=== PATIENT | male | born 1970 | race Caucasian/White ===

== ENCOUNTER 2020-02-26 09:25 | Inpatient (IN) | payer SELFPAY ==
--- NOTE | 2020-02-26 09:46 | BHS.RME ---
Substance Use & Tx History - Substance Use History Alcohol Substance amount: 1/5 vodka Frequency of use: Daily Substance route: Oral Date of Last Use: 02/25/20 (First use age 12. NO seizures or blackouts. Admits to eyeopener) Nicotine Substance amount: 1/2 cigar Frequency of use: Daily Substance route: Smoking Date of Last Use: 02/25/20 (First smoke cigarettes age 12 y) - Last Treatment Date of last treatment: Feb 25, [facility]: alcohol abuse/intoxication Where was last treatment: ER Physical/Psych/Mental Status - Behavior General Behavior: Increased activity (restlessness, agitation) Eye Contact: Normal - Cooperativeness Cooperativeness: Cooperative - Thinking Thought Processes: Tight Thought content: Future oriented - Physical Health Problems Is patient presently having any pain?: No Does patient presently have any injuries (include location): No Does patient currently have a fever: No CIWA Nausea/Vomitin-No Nausea/No Vomiting Muscle Tremors: 4-Moderate,w/Arms Extend Anxiety: 3 Agitation: 3 Paroxysmal Sweats: No Perspiration Orientation: 2-Disoriented Date<2 days Tacttile Disturbances: 0-None Auditory Disturbances: 0-None Visual Disturbances: 0-None Headache: 0-None Present CIWA-Ar Total Score: 12
[2020-02-26 10:30] VITALS: BMI 24.4
--- NOTE | 2020-02-26 10:50 | HP ---
CIWA Score Nausea/Vomitin-No Nausea/No Vomiting Muscle Tremors: 4-Moderate,w/Arms Extend Anxiety: 3 Agitation: 3 Paroxysmal Sweats: No Perspiration Orientation: 2-Disoriented Date<2 days Tacttile Disturbances: 0-None Auditory Disturbances: 0-None Visual Disturbances: 0-None Headache: 0-None Present CIWA-Ar Total Score: 12 - Admission Criteria OASAS Guidelines: Admission for Medically Managed Detox: Requires at least one of the followin. CIWA greater than 12 2. Seizures within the past 24 hours 3. Delirium tremens within the past 24 hours 4. Hallucinations within the past 24 hours 5. Acute intervention needed for co occurring medical disorder 6. Acute intervention needed for co occurring psychiatric disorder 7. Severe withdrawal that cannot be handled at a lower level of care (continued vomiting, continued diarrhea, abnormal vital signs) requiring intravenous medication and/or fluids 8. Admitting History and Physical - Admission Chief Complaint: Mr. Portillo is a 49 yo man who presents to [facility] requesting detox for alcohol use. History of Present Illness: Mr. Portillo is a 49 yo man who presents to [facility] requesting detox for alcohol use. He was last here in 2010. He had a maximum of 2.5 years of sobriety since that time. More recently, he was abstinent for 4 weeks, but, then relapsed 4 days ago when he lost his job and his kicked him out of the home. He presented to [facility] in the past few days. Records from [facility] dated today: alcohol abuse, alcohol intoxication. Further de tails not provided. Pt states he took a cab to get here today PMH: OLIVIA PSH/Psych/Legal: none SoC: recently homeless Substance Use History Alcohol Substance amount: 1/5 vodka Frequency of use: Daily Substance route: Oral Date of Last Use: 02/25/20 (First use age 12. NO seizures or blackouts. Admits to eyeopener) Nicotine Substance amount: 1/2 cigar Frequency of use: Daily Substance route: Smoking Date of Last Use: 02/25/20 (First smoke cigarettes age 12 y) - Last Treatment Date of last treatment: Feb 25 [facility]: alcohol abuse/intoxication Where was last treatment: ER History Source: Patient Limitations to Obtaining History: No Limitations - Smoking History Smoking history: Former smoker Have you smoked in the past 12 months: Yes Aproximately how many cigarettes per day: 0 Admission ROS BHS - HPI Allergies/Adverse Reactions: Allergies Allergy/AdvReac Type Severity Reaction Status Date / Time No Known Allergies Allergy Verified 02/26/20 10:08 Exam Limitations: No Limitations - Ebola screening Have you traveled outside of the country in the last 21 days: No Have you been sick,other than usual withdrawal symptoms: No Do you have a fever: No - Review of Systems Constitutional: No Symptoms Reported EENT: reports: Blurred Vision (glasses for reading) Respiratory: reports: No Symptoms reported Cardiac: reports: No Symptoms Reported GI: reports: Nausea : reports: No Symptoms Reported Musculoskeletal: reports: No Symptoms Reported Integumentary: reports: No Symptoms Reported Neuro: reports: No Symptoms reported Endocrine: reports: No Symptoms Reported Hematology: reports: No Symptoms Reported Psychiatric: reports: Anxious Patient History - Patient Medical History Hx Asthma: No Hx Chronic Obstructive Pulmonary Disease (COPD): No Hx Cardiac Disorders: No Hx Hypertension: Yes Hx Seizures: No Hx Diabetes: No Hx Gastrointestinal Disorders: Yes (Acid reflux) Hx Genitourinary Disorders: No Hx Sexually Transmitted Disorders: No Hx Renal Disease (ESRD): No Hx Depression: Yes Hx Suicide Attempt: No Hx Schizophrenia: No - Patient Surgical History Past Surgical History: No Hx Neurologic Surgery: No Hx Cataract Extraction: No Hx Cardiac Surgery: No Hx Lung Surgery: No Hx Breast Surgery: No Hx Breast Biopsy: No Hx Abdominal Surgery: No Hx Appendectomy: No Hx Cholecystectomy: No Hx Genitourinary Surgery: No Hx Section: No Hx Orthopedic Surgery: No Anesthesia Reaction: No - Reproductive History Patient : (n/a) - Smoking Cessation Smoking history: Former smoker Have you smoked in the past 12 months: Yes Aproximately how many cigarettes per day: 0 Cigars Per Day: 1 Hx Chewing Tobacco Use: No Initiated information on smoking cessation: Yes 'Breaking Loose' booklet given: 02/26/20 - Substances abused Alcohol Substance route: Oral Frequency: Daily Amount used: 27.6 oz Age of first use: 12 Date of last use: 02/25/20 Admission Physical Exam BHS - Vital Signs Vital Signs: Vital Signs - 24 hr 02/26/20 10:27 Temperature 97.8 F Pulse Rate 100 H Respiratory 18 Rate Blood Pressure 165/99 - Physical General Appearance: Yes: Nourished, Mild Distress, Tremorous, Anxious HEENTM: Yes: EOMI, Hearing grossly Normal, Normocephalic, Normal Voice Respiratory: Yes: Lungs Clear, No Respiratory Distress, No Accessory Muscle Use Neck: Yes: Within Normal Limits, Supple Breast: Yes: Breast Exam Deferred Cardiology: Yes: Regular Rhythm, Regular Rate Abdominal: Yes: Normal Bowel Sounds, Non Tender, Flat, Soft Genitourinary: Yes: Other (deferred) Back: Yes: Normal Inspection Musculoskeletal: Yes: Gait Steady Extremities: Yes: Normal Inspection, Non-Tender Neurological: Yes: Alert, Normal Response Integumentary: Yes: Normal Color, Dry, Warm - Diagnostic (1) Alcohol dependence with withdrawal, uncomplicated Current Visit: Yes Status: Acute Comment: 1. Admit to detox 2. Alcohol withdrawal protocol with Librium 3. routine labs (2) Nicotine dependence Current Visit: Yes Status: Acute Qualifiers: Nicotine product type: other Comment: 1. Nicotine replacement therapy (3) GERD (gastroesophageal reflux disease) Current Visit: Yes Status: Acute Comment: 1. continue Prilosec (4) Homeless Current Visit: Yes Status: Acute Comment: 1. has kicked pt out of home in the past few days Cleared for Admission S - Detox or Rehab [facility] Level of Care: Medically Managed Detox Regimen/Protocol: Librium Breathalyzer - Breathalyzer Breathalyzer: 0.139 Urine Drug Screen - Test Device Lot number: [id number] Expiration date: 09/18/21 - Control Is test valid?: Yes - Results Drug screen NEGATIVE: Yes Inpatient Rehab Admission - Rehab Decision to Admit Inpatient rehab admission?: No
[2020-02-26] MEDS ORDERED: ACETAMINOPHEN 325 MG TABLET (FP) PO PRN ×2 (10:52)
[2020-02-26] MEDS ORDERED: MENTHOL/PHENOL 1 EACH UD MM PRN (10:52)
[2020-02-26] MEDS ORDERED: ONDANSETRON *ODT* 4 MG TABLET SL PRN (10:52)
[2020-02-26] MEDS ORDERED: NICOTINE POLACRILEX 2 MG GUM BUC PRN (10:52)
[2020-02-26] MEDS ORDERED: MAGNESIUM CITRATE 300 ML BOTTLE PO PRN (10:52)
[2020-02-26] MEDS ORDERED: METHOCARBAMOL 500 MG TABLET PO PRN (10:52)
[2020-02-26] MEDS ORDERED: MAG HYDROX/AL HYDROX/SIMETH 30 ML UNIT-DOSE CUP PO PRN (10:52)
[2020-02-26] MEDS ORDERED: MAGNESIUM HYDROX 2400MG/30ML ORAL SUSPENSION 30 ML CUP PO PRN (10:52)
[2020-02-26] MEDS ORDERED: BISMUTH SUBSALICYLATE 262 MG/15 ML BTL PO PRN (10:52)
[2020-02-26] MEDS ORDERED: chlordiazePOXIDE HCL 25 MG CAPSULE PO PRN (10:52)
[2020-02-26] MEDS ORDERED: IBUPROFEN 400 MG TABLET (FP) PO PRN (10:52)
[2020-02-26] MEDS ORDERED: PATIENT'S OWN MEDICATION (NON-FORMULARY) (Omeprazole Magnesium [Prilosec Otc] 20 MG) PO SCH (11:00)
[2020-02-26] MEDS: chlordiazePOXIDE HCL 25 MG CAPSULE PO SCH ×3 (12:04→22:48)
--- NOTE | 2020-02-26 14:08 | EKG ---
Test Reason : Blood Pressure : / mmHG Vent. Rate : 086 BPM Atrial Rate : 086 BPM P-R Int : 146 ms QRS Dur : 098 ms QT Int : 374 ms P-R-T Axes : 065 013 051 degrees QTc Int : 447 ms POOR DATA QUALITY, INTERPRETATION MAY BE ADVERSELY AFFECTED NORMAL SINUS RHYTHM NORMAL ECG NO PREVIOUS ECGS AVAILABLE Confirmed by Ted Pedro MD ([id number]) on 02/26/2020 2:07:41 PM Referred By: Confirmed By:Ted Pedro MD
--- NOTE | 2020-02-26 14:19 | PN ---
BHS Progress Note Note: OMEPROZOLE NOT ABLE TO BE IDENTIFIED BY THE PHARMACIST DISCONTINUE OMEPRAZOLE BEGIN PEPCID 20 MG PO BID
[2020-02-26] MEDS: hydrOXYzine PAMOATE 25 MG CAPSULE (FP) PO SCH ×3 (14:23→22:48)
[2020-02-26 15:04] LABS: HEMATOCRIT 45.4 % (35.4-49); HEMOGLOBIN 15.7 GM/dL (11.7-16.9); MCH 33.9 pg (25.7-33.7); MCHC 34.5 g/dl (32.0-35.9); MEAN CELL VOLUME 98.2 fl (80-96); MEAN PLT VOLUME 9.5 fl (7.5-11.1); PLATELET COUNT 135 K/MM3 (134-434); RBC 4.62 M/mm3 (4.00-5.60); RDW 13.1 % (11.9-15.9); WHITE BLOOD COUNT 4.7 K/mm3 (4.0-10.0)
[2020-02-26 15:05] LABS: ALBUMIN 4.4 g/dl (3.4-5.0); BILIRUBIN,TOTAL 1.2 mg/dL (0.2-1); BLOOD UREA NITROGEN 10.5 mg/dL (7-18); CALCIUM 9.3 mg/dL (8.5-10.1); CREATININE 0.9 mg/dL (0.55-1.3); POTASSIUM 3.6 mmol/L (3.5-5.1); TOT PROT 9.6 g/dl (6.4-8.2)
[2020-02-26] MEDS: MELATONIN 5 MG TABLETS PO SCH (22:48)
[2020-02-26] MEDS: THIAMINE HCL 100 MG TABLET (FP) PO SCH (22:48)
[2020-02-27] MEDS: chlordiazePOXIDE HCL 25 MG CAPSULE PO SCH ×2 (06:26→10:21)
[2020-02-27] MEDS: hydrOXYzine PAMOATE 25 MG CAPSULE (FP) PO SCH ×5 (06:27→22:44)
[2020-02-27] MEDS ORDERED: FAMOTIDINE 20 MG TABLET PO SCH (10:00)
[2020-02-27] MEDS: FAMOTIDINE 20 MG TABLET PO SCH ×2 (10:21→22:44)
[2020-02-27] MEDS: PRENATAL VITAMINS W/ FOLIC ACID TABLET (FP) PO SCH (10:21)
[2020-02-27] MEDS: NICOTINE 7 MG/24 HOURS TOPICAL PATCH TD SCH (10:21)
[2020-02-27] MEDS ORDERED: LORazepam 1 MG TABLET PO PRN (11:27)
--- NOTE | 2020-02-27 11:29 | PN ---
S CIWA - CIWA Score Nausea/Vomitin-Mild Nausea/No Vomiting Muscle Tremors: 4-Moderate,w/Arms Extend Anxiety: 3 Agitation: 2 Paroxysmal Sweats: 1-Minimal Palms Moist Orientation: 0-Oriented Tacttile Disturbances: 0-None Auditory Disturbances: 0-None Visual Disturbances: 0-None Headache: 0-None Present CIWA-Ar Total Score: 11 BHS Progress Note (SOAP) Subjective: 49 years old male was admitted on 02/26/20 for alcohol withdrawal sx management treating with librium detox regiment feels tired resting in bed prefers to sleep longer limited conversation with staff Objective: 02/27/20 11:24 Vital Signs - 24 hr 02/26/20 02/26/20 02/26/20 12:28 17:05 20:50 Temperature 98.8 F 98.6 F 98.7 F Pulse Rate 98 H 91 H 76 Respiratory 18 18 17 Rate Blood Pressure 126/65 121/66 117/69 O2 Sat by Pulse 99 99 96 Oximetry (%) 02/27/20 02/27/20 06:36 08:55 Temperature 97.6 F 98.0 F Pulse Rate 72 98 H Respiratory 18 18 Rate Blood Pressure 133/76 143/88 O2 Sat by Pulse 96 Oximetry (%) Laboratory Tests 02/26/20 02/26/20 02/26/20 10:00 10:00 10:00 WBC 4.7 RBC 4.62 Hgb 15.7 Hct 45.4 MCV 98.2 H MCH 33.9 H MCHC 34.5 RDW 13.1 Plt Count 135 MPV 9.5 Sodium 138 Potassium 3.6 Chloride 94 L Carbon Dioxide 35 H Anion Gap 9 BUN 10.5 Creatinine 0.9 Est GFR (CKD-EPI)AfAm 114.21 Est GFR (CKD-EPI)NonAf 98.54 Random Glucose 100 Calcium 9.3 Total Bilirubin 1.2 H AST 141 H ALT 115 H Alkaline Phosphatase 138 H Total Protein 9.6 H Albumin 4.4 Syphilis Serology Non-reactive COVID-19 (KENNY) 02/26/20 13:15 WBC RBC Hgb Hct MCV MCH MCHC RDW Plt Count MPV Sodium Potassium Chloride Carbon Dioxide Anion Gap BUN Creatinine Est GFR (CKD-EPI)AfAm Est GFR (CKD-EPI)NonAf Random Glucose Calcium Total Bilirubin AST ALT Alkaline Phosphatase Total Protein Albumin Syphilis Serology COVID-19 (KENNY) Not detected ast elevation discontinue librium begin ativan detox regiment for alcohol withdrawal sx management Assessment: 02/27/20 11:29 alcohol withdrawal Plan: ativan regiment
[2020-02-27] MEDS: LORazepam 2 MG TABLET PO SCH ×2 (17:40→22:43)
[2020-02-27] MEDS: MELATONIN 5 MG TABLETS PO SCH (22:44)
[2020-02-27] MEDS: THIAMINE HCL 100 MG TABLET (FP) PO SCH (22:44)
[2020-02-28] MEDS ORDERED: chlordiazePOXIDE HCL 25 MG CAPSULE PO SCH (05:00)
[2020-02-28] MEDS: hydrOXYzine PAMOATE 25 MG CAPSULE (FP) PO SCH ×5 (06:31→22:17)
[2020-02-28] MEDS: LORazepam 2 MG TABLET PO SCH ×4 (06:31→22:16)
[2020-02-28] MEDS: FAMOTIDINE 20 MG TABLET PO SCH ×2 (10:20→22:17)
[2020-02-28] MEDS: PRENATAL VITAMINS W/ FOLIC ACID TABLET (FP) PO SCH (10:20)
[2020-02-28] MEDS: NICOTINE 7 MG/24 HOURS TOPICAL PATCH TD SCH (10:21)
--- NOTE | 2020-02-28 11:58 | PN ---
S CIWA - CIWA Score Nausea/Vomitin Muscle Tremors: 2 Anxiety: 2 Agitation: 2 Paroxysmal Sweats: No Perspiration Orientation: 0-Oriented Tacttile Disturbances: 1-Very Mild Itch/Numbness Auditory Disturbances: 0-None Visual Disturbances: 0-None Headache: 2-Mild CIWA-Ar Total Score: 11 S Progress Note (SOAP) Subjective: alert,irritable,anxious,interrupted sleep,pain in the body and back,tremor Objective: 02/28/20 16:57 Vital Signs Temperature 97.5 F L 02/28/20 12:39 Pulse Rate 103 H 02/28/20 12:39 Respiratory Rate 18 02/28/20 12:39 Blood Pressure 147/91 02/28/20 12:39 O2 Sat by Pulse Oximetry (%) 95 02/28/20 12:39 02/28/20 16:57 Laboratory Last Values WBC 4.7 K/mm3 (4.0-10.0) 02/26/20 10:00 RBC 4.62 M/mm3 (4.00-5.60) 02/26/20 10:00 Hgb 15.7 GM/dL (11.7-16.9) 02/26/20 10:00 Hct 45.4 % (35.4-49) 02/26/20 10:00 MCV 98.2 fl (80-96) H 02/26/20 10:00 MCH 33.9 pg (25.7-33.7) H 02/26/20 10:00 MCHC 34.5 g/dl (32.0-35.9) 02/26/20 10:00 RDW 13.1 % (11.9-15.9) 02/26/20 10:00 Plt Count 135 K/MM3 (134-434) 02/26/20 10:00 MPV 9.5 fl (7.5-11.1) 02/26/20 10:00 Sodium 138 mmol/L (136-145) 02/26/20 10:00 Potassium 3.6 mmol/L (3.5-5.1) 02/26/20 10:00 Chloride 94 mmol/L (98-107) L 02/26/20 10:00 Carbon Dioxide 35 mmol/L (21-32) H 02/26/20 10:00 Anion Gap 9 MMOL/L (8-16) 02/26/20 10:00 BUN 10.5 mg/dL (7-18) 02/26/20 10:00 Creatinine 0.9 mg/dL (0.55-1.3) 02/26/20 10:00 Est GFR (CKD-EPI)AfAm 114.21 02/26/20 10:00 Est GFR (CKD-EPI)NonAf 98.54 02/26/20 10:00 Random Glucose 100 mg/dL (74-106) 02/26/20 10:00 Calcium 9.3 mg/dL (8.5-10.1) 02/26/20 10:00 Total Bilirubin 1.2 mg/dL (0.2-1) H 02/26/20 10:00 AST 400 U/L (15-37) H 02/28/20 08:00 ALT 115 U/L (13-61) H 02/26/20 10:00 Alkaline Phosphatase 138 U/L (45-117) H 02/26/20 10:00 Total Protein 9.6 g/dl (6.4-8.2) H 02/26/20 10:00 Albumin 4.4 g/dl (3.4-5.0) 02/26/20 10:00 Syphilis Serology Non-reactive (NONREACTIVE) 02/26/20 10:00 COVID-19 (KENNY) Not detected (Not Detected) 02/26/20 13:15 Assessment: 02/28/20 17:00 withdrawal symptom Plan: continue detox ativan regimen,repeat cmp,inr in am
[2020-02-28] MEDS: THIAMINE HCL 100 MG TABLET (FP) PO SCH (22:17)
[2020-02-28] MEDS: MELATONIN 5 MG TABLETS PO SCH (22:17)
[2020-02-29] MEDS ORDERED: chlordiazePOXIDE HCL 10 MG CAPSULE PO PRN
[2020-02-29] MEDS ORDERED: chlordiazePOXIDE HCL 10 MG CAPSULE PO SCH (05:00)
[2020-02-29] MEDS: hydrOXYzine PAMOATE 25 MG CAPSULE (FP) PO SCH ×5 (06:38→22:28)
[2020-02-29] MEDS: LORazepam 1 MG TABLET PO SCH ×4 (06:38→22:27)
--- NOTE | 2020-02-29 08:52 | PN ---
S CIWA - CIWA Score Nausea/Vomitin-No Nausea/No Vomiting Muscle Tremors: None Anxiety: 0-No Anxiety, at Ease Agitation: 0-Normal Activity Paroxysmal Sweats: 2 Orientation: 0-Oriented Tacttile Disturbances: 0-None Auditory Disturbances: 0-None Visual Disturbances: 0-None Headache: 0-None Present CIWA-Ar Total Score: 2 BHS Progress Note (SOAP) Subjective: Patient was examined by bedside in no acute distress. Patient was laying in bed and had recently finished eating. Patient stated they have no complaints other than sweating. Objective: 02/29/20 08:54 PE: General: No acute distress, alert and awake MSK: gait normal, pelvis stable, normal range of motion Skin: No lesions or abrasions skin color normal. MS: responds appropriately to questions, oriented x3, pleasant demeanor 02/29/20 08:57 CBC,CMP WBC 4.7 K/mm3 (4.0-10.0) 02/26/20 10:00 RBC 4.62 M/mm3 (4.00-5.60) 02/26/20 10:00 Hgb 15.7 GM/dL (11.7-16.9) 02/26/20 10:00 Hct 45.4 % (35.4-49) 02/26/20 10:00 MCV 98.2 fl (80-96) H 02/26/20 10:00 MCH 33.9 pg (25.7-33.7) H 02/26/20 10:00 MCHC 34.5 g/dl (32.0-35.9) 02/26/20 10:00 RDW 13.1 % (11.9-15.9) 02/26/20 10:00 Plt Count 135 K/MM3 (134-434) 02/26/20 10:00 MPV 9.5 fl (7.5-11.1) 02/26/20 10:00 Sodium 138 mmol/L (136-145) 02/26/20 10:00 Potassium 3.6 mmol/L (3.5-5.1) 02/26/20 10:00 Chloride 94 mmol/L (98-107) L 02/26/20 10:00 Carbon Dioxide 35 mmol/L (21-32) H 02/26/20 10:00 Anion Gap 9 MMOL/L (8-16) 02/26/20 10:00 BUN 10.5 mg/dL (7-18) 02/26/20 10:00 Creatinine 0.9 mg/dL (0.55-1.3) 02/26/20 10:00 Est GFR (CKD-EPI)AfAm 114.21 02/26/20 10:00 Est GFR (CKD-EPI)NonAf 98.54 02/26/20 10:00 Random Glucose 100 mg/dL (74-106) 02/26/20 10:00 Calcium 9.3 mg/dL (8.5-10.1) 02/26/20 10:00 Total Bilirubin 1.2 mg/dL (0.2-1) H 02/26/20 10:00 AST 400 U/L (15-37) H 02/28/20 08:00 ALT 115 U/L (13-61) H 02/26/20 10:00 Alkaline Phosphatase 138 U/L (45-117) H 02/26/20 10:00 Total Protein 9.6 g/dl (6.4-8.2) H 02/26/20 10:00 Albumin 4.4 g/dl (3.4-5.0) 02/26/20 10:00 Current Medications Generic Name Dose Route Start Last Admin Trade Name Freq PRN Reason Stop Dose Admin Al Hydroxide/Mg Hydroxide 30 ml 02/26/20 10:52 Mylanta Oral Suspension - PO Q6H PRN DYSPEPSIA Bismuth Subsalicylate 30 ml 02/26/20 10:52 Pepto-Bismol Liquid - PO Q1H PRN DIARRHEA Eucalyptus/Menthol/Phenol/Sorbitol 1 each 02/26/20 10:52 Cepastat Lozenge - MM 03/03/20 10:52 Q4H PRN SORE THROAT Famotidine 20 mg 02/27/20 10:00 02/28/20 22:17 Pepcid - PO 20 mg BID LACHELLE Administration Hydroxyzine Pamoate 25 mg 02/26/20 14:00 02/29/20 06:38 Vistaril - PO 03/03/20 10:52 25 mg Q4HWA LACHELLE Administration Ibuprofen 400 mg 02/26/20 10:52 Motrin - PO Q6H PRN PAIN LEVEL 1 - 3 Lorazepam 1 mg 02/29/20 05:00 02/29/20 06:38 Ativan - PO 02/29/20 23:01 1 mg 0500,1100,1700,2300 LACHELLE Administration Lorazepam 1 mg 02/27/20 11:27 Ativan - PO 02/29/20 23:59 Q4H PRN Symptoms of Withdrawal Lorazepam 0.5 mg 03/01/20 05:00 Ativan - PO 03/01/20 23:01 Q6H LACHELLE Lorazepam 0.5 mg 03/01/20 00:00 Ativan - PO 03/02/20 00:00 Q4H PRN Symptoms of Withdrawal Lorazepam 0.5 mg 03/02/20 05:00 Ativan - PO 03/02/20 05:01 ONCE ONE Magnesium Citrate 300 ml 02/26/20 10:52 Citroma - PO Q48H PRN CONSTIPATION Magnesium Hydroxide 30 ml 02/26/20 10:52 Milk Of Magnesia - PO PRN PRN CONSTIPATION Melatonin 5 mg 02/26/20 22:00 02/28/20 22:17 Melatonin PO 5 mg HS LACHELLE Administration Methocarbamol 500 mg 02/26/20 10:52 02/26/20 12:10 Robaxin - PO 03/03/20 10:52 500 mg Q6H PRN Administration MUSCLE SPASMS Nicotine 7 mg 02/27/20 10:00 02/28/20 10:21 Nicoderm Patch - TD Not Given DAILY [facility] Nicotine Polacrilex 2 mg 02/26/20 10:52 Nicorette Gum - BUC Q2H PRN NICOTINE REPLACEMENT RX Ondansetron HCl 4 mg 02/26/20 10:52 Zofran Odt - SL Q8H PRN Nausea/Vomiting Multivit/Folic Acid/Iron 1 tab 02/27/20 10:00 02/28/20 10:20 Vitamins (Sjr) - PO 1 tab DAILY LACHELLE Administration Thiamine HCl 100 mg 02/26/20 22:00 02/28/20 22:17 Vitamin B1 - PO 100 mg HS LACHELLE Administration Discontinued Medications Generic Name Dose Route Start Last Admin Trade Name Freq PRN Reason Stop Dose Admin Acetaminophen 650 mg 02/26/20 10:52 Tylenol - PO Q6H PRN PAIN LEVEL 4 - 6 Acetaminophen 650 mg 09/15/20 10:52 Tylenol - PO Q6H PRN FEVER Chlordiazepoxide HCl 50 mg 02/26/20 11:00 02/27/20 10:21 Librium - PO 02/27/20 23:01 50 mg [id number] LACHELLE Administration Chlordiazepoxide HCl 25 mg 02/28/20 05:00 Librium - PO 02/28/20 23:01 [id number] LACHELLE Chlordiazepoxide HCl 25 mg 02/26/20 10:52 Librium - PO 02/28/20 23:59 Q4H PRN WITHDRAWAL(CONT SUBST) Chlordiazepoxide HCl 10 mg 02/29/20 05:00 Librium - PO 02/29/20 23:01 [id number] LACHELLE Chlordiazepoxide HCl 10 mg 03/01/20 05:00 Librium - PO 03/01/20 17:01 Q12H LACHELLE Chlordiazepoxide HCl 10 mg 02/29/20 00:00 Librium - PO 03/01/20 00:00 Q4H PRN WITHDRAWAL(CONT SUBST) Chlordiazepoxide HCl 10 mg 03/02/20 05:00 Librium - PO 03/02/20 05:01 ONCE@0500 ONE Famotidine 20 mg 02/27/20 10:00 Pepcid - PO BID LACHELLE Lorazepam 2 mg 02/27/20 17:00 02/28/20 22:16 Ativan PO 02/28/20 23:01 2 mg 0500,1100,1700,2300 LACHELLE Administration Non-Formulary Medication 20 mg 02/26/20 11:00 02/26/20 15:44 Omeprazole Magnesium [Prilosec Otc] PO Not Given BID LACHELLE Tuberculin PPD 5 units 02/26/20 10:52 02/26/20 12:10 Tubersol ([facility] Only) 5ml Vial ID 02/26/20 10:53 5 tu ONCE ONE Administration Last Vital Signs Temp Pulse Resp BP Pulse Ox 97.0 F L 81 18 121/78 100 02/29/20 06:00 02/29/20 06:00 02/29/20 06:00 02/29/20 06:00 02/29/20 06:00 Assessment: 02/29/20 08:54 Assesment: Patient is here for for detox from alcohol on librium protocol day 5. Plan: Plan: Continue librium protocol.
[2020-02-29] MEDS: FAMOTIDINE 20 MG TABLET PO SCH ×2 (10:11→22:28)
[2020-02-29] MEDS: PRENATAL VITAMINS W/ FOLIC ACID TABLET (FP) PO SCH (10:11)
[2020-02-29] MEDS: NICOTINE 7 MG/24 HOURS TOPICAL PATCH TD SCH (10:11)
[2020-02-29 14:04] LABS: INR 0.99 (0.83-1.09); PROTHROMBIN TIME (PATIENT) 11.7 SEC (9.7-13.0)
[2020-02-29 14:15] LABS: ALBUMIN 3.5 g/dl (3.4-5.0); BILIRUBIN,TOTAL 1.1 mg/dL (0.2-1); BLOOD UREA NITROGEN 5.8 mg/dL (7-18); CALCIUM 8.9 mg/dL (8.5-10.1); CREATININE 0.6 mg/dL (0.55-1.3); POTASSIUM 3.1 mmol/L (3.5-5.1)
[2020-02-29] MEDS: THIAMINE HCL 100 MG TABLET (FP) PO SCH (22:28)
[2020-02-29] MEDS: MELATONIN 5 MG TABLETS PO SCH (22:28)
[2020-03-01] MEDS ORDERED: LORazepam 0.5 MG TABLET PO PRN
[2020-03-01] MEDS ORDERED: chlordiazePOXIDE HCL 10 MG CAPSULE PO SCH (05:00)
[2020-03-01] MEDS: hydrOXYzine PAMOATE 25 MG CAPSULE (FP) PO SCH ×5 (05:41→22:20)
[2020-03-01] MEDS: LORazepam 0.5 MG TABLET PO SCH ×4 (05:41→22:20)
[2020-03-01] MEDS: NICOTINE 7 MG/24 HOURS TOPICAL PATCH TD SCH (11:22)
[2020-03-01] MEDS: FAMOTIDINE 20 MG TABLET PO SCH ×2 (11:22→22:21)
--- NOTE | 2020-03-01 11:29 | PN ---
[facility] CIWA - CIWA Score Nausea/Vomitin-No Nausea/No Vomiting Muscle Tremors: None Anxiety: 1-Mildly Anxious Agitation: 0-Normal Activity Paroxysmal Sweats: 1-Minimal Palms Moist Orientation: 0-Oriented Tacttile Disturbances: 0-None Auditory Disturbances: 0-None Visual Disturbances: 0-None Headache: 0-None Present CIWA-Ar Total Score: 2 BHS Progress Note (SOAP) Subjective: c/o mild withdrawal symptoms. Objective: 03/01/20 11:28 Vital Signs 03/01/20 03/01/20 06:35 08:41 Temperature 98.6 F 97.4 F L Pulse Rate 87 100 H Respiratory 18 16 Rate Blood Pressure 121/87 129/85 O2 Sat by Pulse 99 99 Oximetry (%) Laboratory Last Values WBC 4.7 K/mm3 (4.0-10.0) 02/26/20 10:00 RBC 4.62 M/mm3 (4.00-5.60) 02/26/20 10:00 Hgb 15.7 GM/dL (11.7-16.9) 02/26/20 10:00 Hct 45.4 % (35.4-49) 02/26/20 10:00 MCV 98.2 fl (80-96) H 02/26/20 10:00 MCH 33.9 pg (25.7-33.7) H 02/26/20 10:00 MCHC 34.5 g/dl (32.0-35.9) 02/26/20 10:00 RDW 13.1 % (11.9-15.9) 02/26/20 10:00 Plt Count 135 K/MM3 (134-434) 02/26/20 10:00 MPV 9.5 fl (7.5-11.1) 02/26/20 10:00 PT with INR 11.70 SEC (9.7-13.0) 02/29/20 08:30 INR 0.99 (0.83-1.09) 02/29/20 08:30 Sodium 137 mmol/L (136-145) 02/29/20 08:30 Potassium 3.1 mmol/L (3.5-5.1) L 02/29/20 08:30 Chloride 99 mmol/L (98-107) 02/29/20 08:30 Carbon Dioxide 32 mmol/L (21-32) 02/29/20 08:30 Anion Gap 5 MMOL/L (8-16) L 02/29/20 08:30 BUN 5.8 mg/dL (7-18) L 02/29/20 08:30 Creatinine 0.6 mg/dL (0.55-1.3) 02/29/20 08:30 Est GFR (CKD-EPI)AfAm 134.92 02/29/20 08:30 Est GFR (CKD-EPI)NonAf 116.41 02/29/20 08:30 Random Glucose 108 mg/dL (74-106) H 02/29/20 08:30 Calcium 8.9 mg/dL (8.5-10.1) 02/29/20 08:30 Total Bilirubin 1.1 mg/dL (0.2-1) H 02/29/20 08:30 AST 670 U/L (15-37) H 02/29/20 08:30 ALT 595 U/L (13-61) H 02/29/20 08:30 Alkaline Phosphatase 162 U/L (45-117) H 02/29/20 08:30 Total Protein 7.0 g/dl (6.4-8.2) 02/29/20 08:30 Albumin 3.5 g/dl (3.4-5.0) 02/29/20 08:30 Syphilis Serology Non-reactive (NONREACTIVE) 02/26/20 10:00 COVID-19 (KENNY) Not detected (Not Detected) 02/26/20 13:15 Hep C Ab Diagnostic <0.1 s/co ratio (0.0-0.9) 02/28/20 08:00 Labs noted with elevated AST/ALT. Assessment: 03/01/20 11:28 AOX3, in no acute respiratory distress. Full ROM, ambulating in the unit. Mild Withdrawal symptoms. Elevated liver enzymes. For d/c tomorrow. 03/01/20 11:29 Plan: continue ativan detox.
[2020-03-01] MEDS: PRENATAL VITAMINS W/ FOLIC ACID TABLET (FP) PO SCH (11:31)
[2020-03-01] MEDS: THIAMINE HCL 100 MG TABLET (FP) PO SCH (22:20)
[2020-03-01] MEDS: MELATONIN 5 MG TABLETS PO SCH (22:20)
[2020-03-02] MEDS ORDERED: chlordiazePOXIDE HCL 10 MG CAPSULE PO ONE (05:00)
[2020-03-02] MEDS ORDERED: LORazepam 0.5 MG TABLET PO ONE (05:00)
[2020-03-02] MEDS: hydrOXYzine PAMOATE 25 MG CAPSULE (FP) PO SCH ×2 (05:55→10:37)
[2020-03-02 09:33] VITALS: BP 136/89; PULSE 100; TEMP 97.2
[2020-03-02] MEDS: FAMOTIDINE 20 MG TABLET PO SCH (10:37)
[2020-03-02] MEDS: PRENATAL VITAMINS W/ FOLIC ACID TABLET (FP) PO SCH (10:38)
[2020-03-02] MEDS: NICOTINE 7 MG/24 HOURS TOPICAL PATCH TD SCH (10:38)
--- NOTE | 2020-03-02 11:52 | DS ---
[facility] Detox Discharge Summary Admission Date: 02/26/20 Discharge Date: 03/02/20 - History Present History: Alcohol Dependence Additional Comments: 49 years old male was admitted on 02/26/20 for alcohol withdrawal sx management treated with ativan detox regiment mr lynn has completed the ativan regiment and is tolerated well General Appearance: Yes: Nourished, no Distress, mild Tremorous, mild Anxious HEENTM: Yes: EOMI, Hearing grossly Normal, Normocephalic, Normal Voice Respiratory: Yes: Lungs Clear, No Respiratory Distress, No Accessory Muscle Use Neck: Yes: Within Normal Limits, Supple Breast: Yes: Breast Exam Deferred Cardiology: Yes: Regular Rhythm, Regular Rate Abdominal: Yes: Normal Bowel Sounds, Non Tender, Flat, Soft Genitourinary: Yes: Other (deferred) Back: Yes: Normal Inspection Musculoskeletal: Yes: Gait Steady Extremities: Yes: Normal Inspection, Non-Tender Neurological: Yes: Alert, Normal Response Integumentary: Yes: Normal Color, Dry, Warm Pertinent Past History: time for discharge 34 minutes - Physical Exam Results Vital Signs: Vital Signs Temperature 97.2 F L 03/02/20 08:49 Pulse Rate 100 H 03/02/20 08:49 Respiratory Rate 18 03/02/20 08:49 Blood Pressure 136/89 03/02/20 08:49 O2 Sat by Pulse Oximetry (%) 100 03/02/20 08:49 Pertinent Admission Physical Exam Findings: alcohol withdrawal Vital Signs - 24 hr 03/01/20 03/01/20 03/01/20 13:18 16:43 21:23 Temperature 97.3 F L 97.7 F 97.3 F L Pulse Rate 64 107 H 92 H Respiratory 18 18 18 Rate Blood Pressure 126/69 129/79 128/84 O2 Sat by Pulse 99 99 Oximetry (%) 03/02/20 03/02/20 06:26 08:49 Temperature 97.6 F 97.2 F L Pulse Rate 78 100 H Respiratory 18 18 Rate Blood Pressure 123/76 136/89 O2 Sat by Pulse 100 100 Oximetry (%) Laboratory Tests 02/26/20 02/26/20 02/26/20 10:00 10:00 10:00 WBC 4.7 RBC 4.62 Hgb 15.7 Hct 45.4 MCV 98.2 H MCH 33.9 H MCHC 34.5 RDW 13.1 Plt Count 135 MPV 9.5 PT with INR INR Sodium 138 Potassium 3.6 Chloride 94 L Carbon Dioxide 35 H Anion Gap 9 BUN 10.5 Creatinine 0.9 Est GFR (CKD-EPI)AfAm 114.21 Est GFR (CKD-EPI)NonAf 98.54 Random Glucose 100 Calcium 9.3 Total Bilirubin 1.2 H AST 141 H ALT 115 H Alkaline Phosphatase 138 H Total Protein 9.6 H Albumin 4.4 Syphilis Serology Non-reactive COVID-19 ([facility]) Hep C Ab Diagnostic 02/26/20 02/28/20 02/28/20 13:15 08:00 08:00 WBC RBC Hgb Hct MCV MCH MCHC RDW Plt Count MPV PT with INR INR Sodium Potassium Chloride Carbon Dioxide Anion Gap BUN Creatinine Est GFR (CKD-EPI)AfAm Est GFR (CKD-EPI)NonAf Random Glucose Calcium Total Bilirubin AST 400 H ALT Alkaline Phosphatase Total Protein Albumin Syphilis Serology COVID-19 ([facility]) Not detected Hep C Ab Diagnostic <0.1 02/29/20 02/29/20 08:30 08:30 WBC RBC Hgb Hct MCV MCH MCHC RDW Plt Count MPV PT with INR 11.70 INR 0.99 Sodium 137 Potassium 3.1 L Chloride 99 Carbon Dioxide 32 Anion Gap 5 L BUN 5.8 L Creatinine 0.6 Est GFR (CKD-EPI)AfAm 134.92 Est GFR (CKD-EPI)NonAf 116.41 Random Glucose 108 H Calcium 8.9 Total Bilirubin 1.1 H AST 670 H ALT 595 H Alkaline Phosphatase 162 H Total Protein 7.0 Albumin 3.5 Syphilis Serology COVID-19 ([facility]) Hep C Ab Diagnostic ast elevation mr lynn agrees to go to his primary care provider for ast repeat "every time I drink it goes up" - Treatment Hospital Course: Detox Protocol Followed, Detoxed Safely, Responded well, Discharged Condition Good, Rehab Referral Accepted Patient has Accepted a Rehab Referral to: [facility] - Medication Discharge Medications: Ambulatory Orders Omeprazole Magnesium [Prilosec Otc] 20 mg PO BID 02/26/20 - Diagnosis (1) Substance induced mood disorder Current Visit: Yes Status: Suspected (2) Alcohol dependence with withdrawal, uncomplicated Current Visit: Yes Status: Acute (3) GERD (gastroesophageal reflux disease) Current Visit: Yes Status: Chronic Qualifiers: Esophagitis presence: without esophagitis Qualified Code(s): K21.9 - Gastro-esophageal reflux disease without esophagitis (4) Nicotine dependence Current Visit: Yes Status: Acute Qualifiers: Nicotine product type: cigarettes Substance use status: in withdrawal Qualified Code(s): F17.213 - Nicotine dependence, cigarettes, with withdrawal - AMA Did Patient Leave Against Medical Advice: No CIWA Score - CIWA Score Nausea/Vomitin-No Nausea/No Vomiting Muscle Tremors: None Anxiety: 1-Mildly Anxious Agitation: 0-Normal Activity Paroxysmal Sweats: No Perspiration Orientation: 0-Oriented Tacttile Disturbances: 0-None Auditory Disturbances: 0-None Visual Disturbances: 0-None Headache: 0-None Present CIWA-Ar Total Score: 1
== END 2020-03-02 11:09 | disposition home or self-care (01) | DRG 775 ==
LOC: YASAS 09:25 → Y3N 10:07
PROVIDERS: ADMIT Allergy & Immunology; ATTEND Allergy & Immunology
PROC: HZ2ZZZZ Detoxification Services for Substance Abuse Treatment (ICD-10-PCS; principal; 2020-02-26)
DX: F10.230 Alcohol dependence with withdrawal, uncomplicated (principal); F17.290 Nicotine dependence, other tobacco product, uncomplicated; F19.24 Other psychoactive substance dependence with psychoactive substance-induced mood disorder; F32.9 Major depressive disorder, single episode, unspecified; I10 Essential (primary) hypertension; R74.0 Nonspecific elevation of levels of transaminase and lactic acid dehydrogenase [LDH]; Z59.0 Homelessness
CPT/HCPCS: 36415; 80053; 84450; 85027; 85610; 86780; 86803; 93005; 93010; U0003